=== PATIENT | male | born 1975 | race Caucasian/White ===

== ENCOUNTER 2017-07-02 08:22 | Emergency (ER) | payer BC, SELFPAY ==
[~2017-07-02 08:22] MED LIST: Sodium Chloride 0.9% 1,000 ML BAG ONE
[2017-07-02] MEDS ORDERED: Ondansetron HCl/PF 4 MG/2 ML Vial ONE (08:57)
[2017-07-02 09:37] LABS: ALT (SGPT) 12 U/L (8-55); AST (SGOT) 13 U/L (5-34); Albumin 4.3 g/dL (3.5-5.0); Alkaline Phosphatase 47 U/L (40-150); Anion Gap 12 mmol/L (10-20); BUN (Urea Nitrogen) 19 mg/dL (8.9-20.6); Bilirubin, Total 0.7 mg/dL (0.2-1.2); Calc. Creatinine Clearance 0 mL/min (70-130); Calcium 8.9 mg/dL (7.8-10.44); Carbon Dioxide 27 mmol/L (22-29); Chloride 103 mmol/L (98-107); Estimated GFR-MDRD 78; Globulin 2.5 g/dL (2.4-3.5); Glucose 103 mg/dL (70-105); Potassium 4.2 mmol/L (3.5-5.1); Protein, Total 6.8 g/dL (6.0-8.3); Sodium 138 mmol/L (136-145)
[2017-07-02 09:38] LABS: #Basophils 0.1 thou/uL (0.0-0.2); #Eosinphils 0.1 thou/uL (0.0-0.7); #Lymphocytes 1.4 thou/uL (1.20-3.40); #Monocytes 0.6 thou/uL (0.11-0.59); #Neutrophils 11.4 thou/uL (1.40-6.50); %Basophils 0.6 % (0.0-1.0); %Eosinophils 0.9 % (0.0-10.0); %Lymphocytes 10.2 % (21.0-51.0); %Neutrophils 84.2 % (42.0-75.0); Mean Corpuscular HGB CONC 32.8 g/dL (32.0-36.0); Mean Corpuscular Hemoglobin 30.2 pg (27.0-31.0); Mean Corpuscular Volume 92.1 fl (80.0-94.0); Mean Platelet Volume 8.5 fL (7.4-10.4); Platelet Count 206 thou/uL (130-400); RBC Distribution Width 11.6 % (11.5-14.5); Red Blood Cell (RBC) Count 4.98 mill/uL (4.70-6.10); White Blood Cell (WBC) Count 13.5 thou/uL (4.8-10.8)
[2017-07-02 09:41] LABS: CKMB 0.7 ng/mL (0-6.6); Troponin I 0.013 ng/mL (< 0.028)
[2017-07-02 10:29] LABS: Lipase 4606 U/L (8-78)
[2017-07-02] MEDS ORDERED: Iopamidol 370 76% 125 ML VIAL FS ONE (10:33)
[2017-07-02 10:39] LABS: Bilirubin Negative (Negative); Blood, Urine Negative (Negative); Clarity Clear (Clear); Glucose, Urine (Dipstick) Negative (Negative); Leukocyte Negative (Negative); Nitrite Negative (Negative); Protein, Urine (Dipstick) Negative (Neg-Trace); Specific Gravity, Urine 1.008 (1.002-1.036); Urobilinogen 0.2 mg/dL (0.2-1.0)
--- NOTE | 2017-07-02 11:36 | CT ---
CT ANGIOGRAM CHEST WITH IV CONTRAST AND 3D RECONSTRUCTIONS CT ANGIOGRAM ABDOMEN WITH IV CONTRAST AND 3D RECONSTRUCTIONS: Date: 07-02-17 History: Midabdominal pain since 0430 hours today. FINDINGS: The thoracic and abdominal aorta are normal in caliber without evidence of an aortic dissection. The most proximal visualized iliac arteries are patent. There is a normal arrangement of the great vess els at the aortic arch which are patent. The celiac artery is down going with narrowing proximally w hich may be related to arcuate ligament. The superior mesenteric and inferior mesenteric arteries ar e patent. There are single patent bilateral renal arteries noted. Prominent atelectasis is seen bilaterally. Lungs are otherwise clear. Degenerative changes are seen in the lumbar spine. Transitional vertebrae is seen at the lumbosacral junction with fusion of the l ower aspects of the L5 and S1 vertebral bodies. Mediastinal structures have a normal CT appearance. The liver, spleen, adrenal glands, and kidneys demonstrate a normal CT appearance for arterial phase of imaging. There is decreased attenuation seen involving the head and body of the pancreas with peripancreatic inflammatory changes and fluid with a small amount of fluid seen in each pericolic gutter. Findings may be related to pancreatitis, but follow up evaluation is recommended to exclude pancreatic neopla stic process although this has more of an appearance suggestive of pancreatitis. IMPRESSION: 1. Evidence for pancreatitis with decreased attenuation involving the head and body of the pancreas with peripancreatic inflammatory stranding and fluid. Correlation with laboratory values is recommen ded to confirm pancreatitis. Follow up evaluation is also recommended to ensure that decreased atten uation of the pancreas improves after resolution of presumed pancreatitis. 2. Thoracic and abdominal aorta are normal in caliber without evidence of an aortic dissection. 3. 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 POS: JEOVANNY
== END 2017-07-02 13:17 | disposition short-term general hospital (02) ==
LOC: MADERS 08:22
DX: K85.90 Acute pancreatitis without necrosis or infection, unspecified (principal); R00.1 Bradycardia, unspecified; F17.220 Nicotine dependence, chewing tobacco, uncomplicated
CPT/HCPCS: 71275; 80053; 81003; 82553; 83690; 84484; 85025; 93005; 96361; 96374; 96375; 96376; J2270; J2405; J7050